=== PATIENT | male | born 1935 | race Two or more races ===

== ENCOUNTER 2018-05-12 15:36 | Inpatient (IN) | payer OTHER ==
[~2018-05-12] VITALS: Ht 167.6 cm; Wt 60.3 kg
[2018-05-12 16:13] LABS: BASOPHILS # (AUTO) 0.1 /CMM (0.0-0.2); BASOPHILS % (AUTO) 0.5 % (0.0-2.0); HEMATOCRIT 36 % (39-51); HEMOGLOBIN 12.3 g/dL (13.5-17.5); LYMPHOCYTES # (AUTO) 0.6 /CMM (0.8-4.8); LYMPHOCYTES % (AUTO) 2.8 % (20.0-44.0); MEAN CORPUSCULAR HGB CONC 34 g/dl (31.0-36.0); MEAN CORPUSCULAR VOLUME 95 fL (80-96); MONOCYTES # (AUTO) 2.8 /CMM (0.1-1.30); MONOCYTES % (AUTO) 12.9 % (2.0-12.0); NEUTROPHILS # (AUTO) 18.1 /CMM (1.8-8.9); NEUTROPHILS % (AUTO) 83.8 % (43.0-81.0); PLATELET COUNT (AUTO) 195 /CMM (150-450); RED BLOOD CELL COUNT(AUTO) 3.79 MIL/uL (4.5-6.0); WHITE BLOOD COUNT (AUTO) 21.7 K/uL (4.3-11.0)
[2018-05-12 16:14] LABS: APPEARANCE,URINE Turbid (CLEAR); BILIRUBIN,URINE SMALL (NEGATIVE); BLOOD, URINE Large Ery/uL (NEGATIVE); COLOR,URINE Yellow (YELLOW); KETONES,URINE Trace (NEGATIVE); LEUKOCYTE ESTERASE ,URINE Large (NEGATIVE); NITRITE, URINE Positive (NEGATIVE); PROTEIN,URINE >=300 mg/dl (NEGATIVE); UGLUCOSE Negative (NEGATIVE); UROBILINOGEN,URINE 0.2 EU/dL (0.2)
[2018-05-12 16:18] LABS: CALCIUM, SERUM 8.4 mg/dL (8.5-10.1); CARBON DIOXIDE 25 mmol/L (21-32); CHLORIDE 105 mmol/L (98-107); CREATININE 2.7 mg/dL (0.6-1.3); GLUCOSE 107 mg/dL (74-106); POTASSIUM 4.1 mmol/L (3.5-5.1); SODIUM SERUM 141 mmol/L (136-145); UREA NITROGEN, BLOOD 31 mg/dL (7-18)
[2018-05-12 16:28] LABS: BACTERIA,URINE 4+ /HPF (None Seen); RBC,URINE 21-50 /HPF (0-2); SQUAMOUS EPITHELIAL CELL,UR Few /HPF (None Seen); WBC,URINE TOO NUMEROUS TO COUN /HPF (0-3)
[2018-05-12] MEDS ORDERED: IV NS 0.9% 1,000 ML BAG IV ONE (16:30)
[2018-05-12] MEDS ORDERED: CEFTRIAXONE 1GM BAG (ER ONLY) 50 ML IV ONE ×2 (16:30→16:31)
[2018-05-12] MEDS ORDERED: ALLO100T PO (16:46)
[2018-05-12] MEDS ORDERED: OMEP20CA10 PO (16:46)
[2018-05-12] MEDS ORDERED: FOLI0.8T PO (16:46)
[2018-05-12] MEDS ORDERED: PENT400T12 PO (16:46)
[2018-05-12] MEDS ORDERED: AMLO1TAB12 PO (16:46)
[2018-05-12 17:50] VITALS: BP 130/83
[2018-05-12] MEDS ORDERED: ONDANSETRON HCL/PF 4 MG/2 ML VIAL IVP PRN (19:30)
[2018-05-12] MEDS ORDERED: ACETAMINOPHEN 325 MG TABLET PO PRN (19:30)
[2018-05-12] MEDS ORDERED: ZOLPIDEM TARTRATE 5 MG TABLET PO PRN (19:30)
[2018-05-12] MEDS ORDERED: CEFTRIAXONE 1 G in IV D5W 50 ML IV SCH (19:30)
[2018-05-12 19:59] VITALS: BP 128/77
[2018-05-12 20:00] VITALS: BP 128/77
[2018-05-12] MEDS: PENTOXIFYLLINE 400 MG TABLET.SA PO SCH (22:22)
[2018-05-12] MEDS: IV NS 0.9% 1,000 ML IV PRN (22:23)
[2018-05-13 06:44] LABS: BASOPHILS % (AUTO) 0.2 % (0.0-2.0); HEMATOCRIT 32 % (39-51); HEMOGLOBIN 10.8 g/dL (13.5-17.5); LYMPHOCYTES # (AUTO) 0.3 /CMM (0.8-4.8); LYMPHOCYTES % (AUTO) 2.3 % (20.0-44.0); MEAN CORPUSCULAR HGB CONC 34 g/dl (31.0-36.0); MEAN CORPUSCULAR VOLUME 94 fL (80-96); MONOCYTES # (AUTO) 0.5 /CMM (0.1-1.30); MONOCYTES % (AUTO) 4.4 % (2.0-12.0); NEUTROPHILS # (AUTO) 10.9 /CMM (1.8-8.9); NEUTROPHILS % (AUTO) 93.1 % (43.0-81.0); PLATELET COUNT (AUTO) 139 /CMM (150-450); RED BLOOD CELL COUNT(AUTO) 3.39 MIL/uL (4.5-6.0); WHITE BLOOD COUNT (AUTO) 11.7 K/uL (4.3-11.0)
[2018-05-13 07:09] LABS: ALANINE AMINOTRANSFERASE 19 U/L (12-78); ALBUMIN 2.5 g/dL (3.4-5.0); ALKALINE PHOSPHATASE 133 U/L (46-116); ASPARTATE AMINOTRANSFERASE 14 U/L (15-37); BILIRUBIN,TOTAL 0.6 mg/dL (0.2-1.0); CALCIUM, SERUM 7.9 mg/dL (8.5-10.1); CARBON DIOXIDE 23 mmol/L (21-32); CHLORIDE 109 mmol/L (98-107); CREATININE 2.4 mg/dL (0.6-1.3); GLUCOSE 83 mg/dL (74-106); MAGNESIUM 1.3 mg/dL (1.8-2.4); PHOSPHORUS 2.8 mg/dL (2.5-4.9); POTASSIUM 4.1 mmol/L (3.5-5.1); SODIUM SERUM 142 mmol/L (136-145); TOTAL PROTEIN, SERUM 5.5 g/dL (6.4-8.2); UREA NITROGEN, BLOOD 29 mg/dL (7-18)
[2018-05-13 07:10] LABS: CHOLESTEROL 113 mg/dL (<200); LDL 60 mg/dL (0-99); TRIGLYCERIDES 146 mg/dL (30-150)
[2018-05-13 07:11] LABS: HDL CHOLESTEROL < 10 mg/dL (40-60)
[2018-05-13] MEDS ORDERED: OMEPRAZOLE 20 MG CAPSULE.DR PO SCH (07:30)
[2018-05-13 08:00] VITALS: BP 103/59
[2018-05-13] MEDS: FOLIC ACID 1 MG TABLET PO SCH (08:33)
[2018-05-13] MEDS: PANTOPRAZOLE 40 MG TABLET.DR PO SCH (08:33)
[2018-05-13] MEDS: VALSARTAN 80 MG TABLET PO SCH (08:36)
[2018-05-13] MEDS: AMLODIPINE BESYLATE 5 MG TABLET PO SCH (08:37)
[2018-05-13] MEDS: Magnesium 1GM/D5W 100ML PREMIX 100 ML IV SCH ×2 (09:17→10:24)
[2018-05-13] MEDS: ALLOPURINOL 100 MG TABLET PO SCH (12:06)
[2018-05-13] MEDS: IV NS 0.9% 1,000 ML IV PRN (13:24)
[2018-05-13 16:00] VITALS: BP 122/70
[2018-05-13] MEDS: CEFTRIAXONE 1 G in IV D5W 50 ML IV SCH (18:03)
[2018-05-13 20:12] VITALS: BP 123/71
[2018-05-13] MEDS: PENTOXIFYLLINE 400 MG TABLET.SA PO SCH (21:32)
[2018-05-14] MEDS: IV NS 0.9% 1,000 ML IV PRN (03:11)
[2018-05-14 08:00] VITALS: BP 136/73
[2018-05-14] MEDS: PANTOPRAZOLE 40 MG TABLET.DR PO SCH (08:34)
[2018-05-14] MEDS: FOLIC ACID 1 MG TABLET PO SCH (08:35)
[2018-05-14] MEDS: AMLODIPINE BESYLATE 5 MG TABLET PO SCH ×2 (08:36→11:00)
[2018-05-14] MEDS: VALSARTAN 80 MG TABLET PO SCH ×2 (08:36→14:02)
[2018-05-14] MEDS ORDERED: ALBUTEROL FS 2.5 MG/3 ML VIAL.NEB NEB PRN (10:30)
[2018-05-14 11:02] LABS: BASOPHILS % (AUTO) 0.4 % (0.0-2.0); EOSINOPHILS % (AUTO) 1.4 % (0.0-6.0); HEMATOCRIT 33 % (39-51); HEMOGLOBIN 11.1 g/dL (13.5-17.5); LYMPHOCYTES # (AUTO) 0.6 /CMM (0.8-4.8); LYMPHOCYTES % (AUTO) 5.5 % (20.0-44.0); MEAN CORPUSCULAR HGB CONC 34 g/dl (31.0-36.0); MEAN CORPUSCULAR VOLUME 95 fL (80-96); MONOCYTES # (AUTO) 0.6 /CMM (0.1-1.30); MONOCYTES % (AUTO) 5.2 % (2.0-12.0); NEUTROPHILS # (AUTO) 9.3 /CMM (1.8-8.9); NEUTROPHILS % (AUTO) 87.5 % (43.0-81.0); PLATELET COUNT (AUTO) 144 /CMM (150-450); RED BLOOD CELL COUNT(AUTO) 3.46 MIL/uL (4.5-6.0); WHITE BLOOD COUNT (AUTO) 10.7 K/uL (4.3-11.0)
[2018-05-14 11:12] LABS: CALCIUM, SERUM 8.2 mg/dL (8.5-10.1); CARBON DIOXIDE 24 mmol/L (21-32); CHLORIDE 111 mmol/L (98-107); CREATININE 2.3 mg/dL (0.6-1.3); GLUCOSE 118 mg/dL (74-106); POTASSIUM 4.3 mmol/L (3.5-5.1); SODIUM SERUM 141 mmol/L (136-145); UREA NITROGEN, BLOOD 33 mg/dL (7-18)
[2018-05-14] MEDS: ALLOPURINOL 100 MG TABLET PO SCH (12:56)
[2018-05-14 16:00] VITALS: BP 136/83
[2018-05-14] MEDS: CEFTRIAXONE 1 G in IV D5W 50 ML IV SCH (18:19)
[2018-05-14 20:00] VITALS: BP 123/70
[2018-05-14] MEDS: PENTOXIFYLLINE 400 MG TABLET.SA PO SCH (22:15)
[2018-05-15 06:20] LABS: BASOPHILS % (AUTO) 0.5 % (0.0-2.0); EOSINOPHILS % (AUTO) 2.9 % (0.0-6.0); HEMATOCRIT 32 % (39-51); HEMOGLOBIN 10.7 g/dL (13.5-17.5); LYMPHOCYTES # (AUTO) 0.7 /CMM (0.8-4.8); LYMPHOCYTES % (AUTO) 10.2 % (20.0-44.0); MEAN CORPUSCULAR HGB CONC 34 g/dl (31.0-36.0); MEAN CORPUSCULAR VOLUME 95 fL (80-96); MONOCYTES # (AUTO) 0.6 /CMM (0.1-1.30); MONOCYTES % (AUTO) 9.2 % (2.0-12.0); NEUTROPHILS # (AUTO) 5.3 /CMM (1.8-8.9); NEUTROPHILS % (AUTO) 77.2 % (43.0-81.0); PLATELET COUNT (AUTO) 153 /CMM (150-450); RED BLOOD CELL COUNT(AUTO) 3.34 MIL/uL (4.5-6.0); WHITE BLOOD COUNT (AUTO) 6.9 K/uL (4.3-11.0)
[2018-05-15 06:45] LABS: CALCIUM, SERUM 8.4 mg/dL (8.5-10.1); CARBON DIOXIDE 25 mmol/L (21-32); CHLORIDE 113 mmol/L (98-107); CREATININE 2.3 mg/dL (0.6-1.3); GLUCOSE 97 mg/dL (74-106); MAGNESIUM 2.1 mg/dL (1.8-2.4); PHOSPHORUS 3.3 mg/dL (2.5-4.9); POTASSIUM 4.6 mmol/L (3.5-5.1); SODIUM SERUM 145 mmol/L (136-145); UREA NITROGEN, BLOOD 28 mg/dL (7-18)
[2018-05-15 08:00] VITALS: BP 146/80
[2018-05-15] MEDS: PANTOPRAZOLE 40 MG TABLET.DR PO SCH (09:20)
[2018-05-15] MEDS: FOLIC ACID 1 MG TABLET PO SCH (09:20)
[2018-05-15] MEDS: AMLODIPINE BESYLATE 5 MG TABLET PO SCH (09:21)
[2018-05-15] MEDS: VALSARTAN 80 MG TABLET PO SCH (09:21)
[2018-05-15] MEDS ORDERED: Levofloxacin (250MG) PO (10:36)
[2018-05-15] MEDS ORDERED: LEVOFLOXACIN (250MG) 250 MG TABLET PO SCH (11:00)
[2018-05-15] MEDS: ALLOPURINOL 100 MG TABLET PO SCH (11:38)
[2018-05-15 16:00] VITALS: BP 153/86
== END 2018-05-15 17:25 | disposition home or self-care (01) | DRG 689 ==
LOC: ER 15:36 → MED 17:22
PROVIDERS: ADMIT Nurse Practitioner Acute Care; ATTEND Internal Medicine
DX: N39.0 Urinary tract infection, site not specified (principal); N17.0 Acute kidney failure with tubular necrosis; N18.4 Chronic kidney disease, stage 4 (severe); D63.8 Anemia in other chronic diseases classified elsewhere; I12.9 Hypertensive chronic kidney disease with stage 1 through stage 4 chronic kidney disease, or unspecified chronic kidney disease; K21.9 Gastro-esophageal reflux disease without esophagitis; Z79.899 Other long term (current) drug therapy; Z87.440 Personal history of urinary (tract) infections; N40.0 Benign prostatic hyperplasia without lower urinary tract symptoms; B96.20 Unspecified Escherichia coli [E. coli] as the cause of diseases classified elsewhere; E83.42 Hypomagnesemia; E86.9 Volume depletion, unspecified
CPT/HCPCS: 36415; 71045-TC; 80048-TC; 80053-TC; 80061-TC; 81000-TC; 83605-TC; 83735-TC; 84100-TC; 84443-TC; 85025-TC; 87040-TC; 87081-TC; 87086-TC; 87186-TC; G0378; J0696; J3475; J7030; J7060